=== PATIENT | male | born 1945 | race Caucasian/White ===

== ENCOUNTER 2020-05-28 14:01 | Emergency (ER) | payer MEDICARE ==
[~2020-05-28] VITALS: Ht 180.3 cm; Wt 100.0 kg
[2020-05-28] MEDS ORDERED: normal saline 1000ml 1,000 ML IV ONE (15:50)
[2020-05-28] MEDS ORDERED: dexamethasone sod phosphate 10mg/ml inj IV STA (16:37)
[2020-05-28] MEDS ORDERED: BAMLANIVIMAB INJECTION 700 MG in normal saline 250ml IV soln 180 ML IV ONE (16:40)
[2020-05-28] MEDS ORDERED: BAMLANIVIMAB INJECTION 700 MG in normal saline 250ml IV soln 250 ML IV ONE (16:44)
[2020-05-28 16:56] LABS: ALANINE AMINOTRANSFERASE 25 U/L (12-78); ALBUMIN/GLOBULIN RATIO 0.6 (1.1-1.5); ALKALINE PHOSPHATASE 111 IU/L (46-116); ANION GAP 14 (8-16); ASPARTATE AMINO TRANSFERASE 31 U/L (10-37); BLOOD UREA NITROGEN 22 MG/DL (7-18); BUN/CREATININE RATIO 13.8 (5.4-32.0); CHLORIDE 93 MMOL/L (99-107); GLUCOSE 121 MG/DL (70-104); POTASSIUM 3.4 MMOL/L (3.5-5.1); SODIUM 132 MMOL/L (135-145); TOTAL CARBON DIOXIDE 25.2 MMOL/L (24-32); TOTAL PROTEIN 8.4 G/DL (6.4-8.2); eGFR 43 ML/MIN
[2020-05-28 17:07] LABS: C-REACTIVE PROTEIN 19.31 MG/DL (0.0-0.5); FERRITIN 824 NG/ML (26-388); LACTATE DEHYDROGENASE 222 U/L (85-227)
[2020-05-28 17:36] VITALS: BP 135/85
== END 2020-05-28 19:38 | disposition home or self-care (01) ==
LOC: ER 14:02
DX: U07.1 COVID-19 (principal); R63.0 Anorexia; R06.2 Wheezing; R05 Cough; R19.7 Diarrhea, unspecified; R11.0 Nausea
CPT/HCPCS: 36415; 71045; 80053; 82728; 83615; 84145; 85384; 86140; 96361; 96374; 99284; J1100; J7030; J7050; M0239; Q0239; 96365; 96375

== ENCOUNTER 2021-08-26 19:53 | Inpatient (IN) | payer MEDICARE ==
[~2021-08-26] VITALS: Ht 180.3 cm; Wt 114.2 kg
[~2021-08-26 19:53] MED LIST: etomidate 2mg/ml inj. ONE
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
[2021-08-26 20:17] LABS: BASOPHILS % (AUTO) 0.5 % (0-1); EOSINOPHILS # (AUTO) 0.3 X10'3 (0-0.9); EOSINOPHILS % (AUTO) 3.5 % (0-6); HEMATOCRIT 45.8 % (42.0-52.0); HEMOGLOBIN 15.6 g/dl (14.0-17.9); LYMPHOCYTES # (AUTO) 2.8 X10'3 (1.1-4.8); LYMPHOCYTES % (AUTO) 38.9 % (21-51); MEAN CORPUSCULAR HEMOGLOBIN 30.9 PG (27.0-31.0); MEAN CORPUSCULAR HGB CONC 33.9 g/dL (33.0-36.5); MEAN PLATELET VOLUME 6.9 FL (7.4-10.4); MONOCYTES # (AUTO) 0.6 X10'3 (0-0.9); MONOCYTES % (AUTO) 7.9 % (2-12); NEUTROPHILS # (AUTO) 3.5 X10'3 (1.8-7.7); NEUTROPHILS % (AUTO) 49.2 % (42-75); PLATELET COUNT 163 X10'3 (140-440); RED BLOOD COUNT 5.04 X10'6 (4.70-6.10); RED CELL DISTRIBUTION WIDTH 14.2 % (11.5-14.5); WHITE BLOOD COUNT 7.2 X10'3 (4.5-11.0)
[2021-08-26 20:27] LABS: APTT 26 SECONDS (22-32)
[2021-08-26 20:29] LABS: ALANINE AMINOTRANSFERASE 60 U/L (12-78); ALBUMIN 3.9 G/DL (3.4-5.0); ALKALINE PHOSPHATASE 85 IU/L (46-116); ANION GAP 15 (8-16); ASPARTATE AMINO TRANSFERASE 51 U/L (10-37); BILIRUBIN,TOTAL 0.6 MG/DL (0.1-1.0); BLOOD UREA NITROGEN 23 MG/DL (7-18); BUN/CREATININE RATIO 15.3 (5.4-32.0); CALCIUM 8.2 MG/DL (8.5-10.1); CHLORIDE 100 MMOL/L (99-107); GLUCOSE 166 MG/DL (70-104); POTASSIUM 3.6 MMOL/L (3.5-5.1); SODIUM 137 MMOL/L (135-145); TOTAL CARBON DIOXIDE 22.4 MMOL/L (24-32); TOTAL PROTEIN 7.7 G/DL (6.4-8.2); eGFR 46 ML/MIN
[2021-08-26 20:32] LABS: ETHANOL 0.089 GM/DL (0.0-0.010)
--- NOTE | 2021-08-26 20:45 | NUR ---
Pt back from CT
[2021-08-26 20:46] VITALS: BP 80/54
[2021-08-26] MEDS ORDERED: propofol 1000mg/100ml bottle 100 ML IV SCH (20:50)
--- NOTE | 2021-08-26 20:58 | NUR ---
Pt awakening after CT. Rn put in order for propofol and began drip per Tom RAMIREZ orders.
[2021-08-26] MEDS ORDERED: NOREPINEPHRINE BITARTRATE/D5W 250 ML IV PRN (21:00)
[2021-08-26 21:02] LABS: ABG OXYGEN SATURATION 95.6 % (94-97); ABG PCO2 (T) 52.9 mmHg (35.0-48.0); ABG PO2 (T) 97.4 mmHg (75.0-100.0); ALLEN'S TEST POSITIVE; FCOHb 0.7 % (0.0-3.9); FMetHb 0.2 % (0.0-1.5); FO2Hb 94.7 % (94-97); PEEP 5 cm H2O; RESPIRATORY RATE 16 b/min; TIDAL VOLUME 450 mL; TOTAL HEMOGLOBIN 15.2 G/dl (14.0-18.0)
[2021-08-26 21:10] LABS: TRIGLYCERIDES 206 MG/DL (20-135)
[2021-08-26] MEDS ORDERED: fentaNYL 50mcg/ml PF inj. 2,500 MCG in normal saline 250ml IV soln 200 ML IV SCH (21:10)
[2021-08-26] MEDS ORDERED: normal saline 1000ML IV soln IV ONE (21:10)
[2021-08-26] MEDS: NOREPINEPHRINE BITARTRATE/D5W 250 ML IV PRN ×2 (21:15→21:53)
[2021-08-26] MEDS ORDERED: cefTRIAXone 1g/NS 100ml IVPB 100 ML IV ONE (21:35)
[2021-08-26] MEDS ORDERED: levoFLOXACIN-Levaquin 750MG/D5 150 ML IV ONE (21:35)
[2021-08-26] MEDS: midazolam 100mg in NS 100ml 100 ML IV PRN (21:46)
--- NOTE | 2021-08-26 21:54 | NUR ---
Patient's blood pressure has been low as documented. Consulted provider and given orders to switch patient to Fentanyl and Versed drip instead of Propofol.
[2021-08-26] MEDS: FENTANYL-0.9 % NACL/PF 250 ML IV SCH (22:07)
--- NOTE | 2021-08-26 22:31 | NUR ---
Patient's Fentanyl drip increased for patient comfort.
[2021-08-26] MEDS ORDERED: acetaminophen 325mg tablet PO PRN (22:40)
[2021-08-26] MEDS ORDERED: potassium Cl 20 mEq SR tablet PO PRN (22:40)
[2021-08-26] MEDS ORDERED: LIDOcaine 2% 10ml TOPICAL JELLY (Urojet) TP ONE (22:40)
[2021-08-26 22:50] VITALS: BP 98/72
--- NOTE | 2021-08-26 23:00 | NUR ---
Patient has been requiring increase in Versed titration for appropriate sedation. Patient sporadically waking up briefly at times. Versed increased.
--- NOTE | 2021-08-26 23:07 | NUR ---
Temp Ghosh placed.
--- NOTE | 2021-08-26 23:09 | NUR ---
Patient's left contact info = [phone]
[2021-08-26] MEDS: piperacillin/tazo 3.375gm/50ml 50 ML IV SCH (23:59)
[2021-08-27] VITALS (31 sets, daily range): BP systolic 85–135; BP diastolic 65–85
[2021-08-27 00:46] LABS: CLARITY,URINE CLEAR (Clear); COLOR,URINE YELLOW (Yellow); GLUCOSE, URINE NEGATIVE (Neg); KETONES,URINE NEGATIVE (Neg); LEUKOCYTE ESTERASE ,URINE NEGATIVE (Neg); NITRITES, URINE NEGATIVE (Neg); OCCULT BLOOD,URINE NEGATIVE (Neg); PROTEIN,URINE 30 mg/dl (Neg); UROBILINOGEN,URINE 0.2 E.U/dL (0.2-1.0)
[2021-08-27 00:52] LABS: UA COLLECTION TYPE NON-SPECIFIED
[2021-08-27 00:54] LABS: SQUAMOUS EPITHELIAL CELL,UR FEW /LPF (FEW)
[2021-08-27 00:55] LABS: BACTERIA,URINE FEW /HPF (Neg); URINE AMPHETAMINE SCREEN NEGATIVE (Neg); URINE BARBITUATE SCREEN NEGATIVE (Neg); URINE BENZODIAZEPINES SCREEN POSITIVE (Neg); URINE CANNABINOID SCREEN NEGATIVE (Neg); URINE COCAINE SCREEN NEGATIVE (Neg); URINE METHADONE SCREEN NEGATIVE (Neg); URINE OPIATE SCREEN NEGATIVE (Neg); URINE PHENCYCLIDINE SCREEN NEGATIVE (Neg)
[2021-08-27 00:56] LABS: FINE GRANULAR CAST 0-3 /LPF (NEGATIVE)
--- NOTE | 2021-08-27 03:02 | NUR ---
RN unable to complete admission questions due to patient arriving intubated and sedated.
[2021-08-27 03:31] LABS: ABG BASE EXCESS -1.6 mmol/L (-2.0-2.0); ABG HCO3 22.6 mmol/L (22.0-26.0); ABG OXYGEN SATURATION 96.1 % (94-97); ABG PCO2 (T) 32.4 mmHg (35.0-48.0); ABG PO2 (T) 72.6 mmHg (75.0-100.0); ALLEN'S TEST Modified; FCOHb 0.3 % (0.0-3.9); FMetHb 0.2 % (0.0-1.5); FO2Hb 95.6 % (94-97); PATIENT TEMPERATURE 34.1; PEEP 5 cm H2O; RESPIRATORY RATE 18 b/min; TIDAL VOLUME 450 mL; TOTAL HEMOGLOBIN 14.6 G/dl (14.0-18.0)
--- NOTE | 2021-08-27 04:49 | NUR ---
RN discussed with Dr. Osorio at 0449 via telemedicine facechat that patient has been hypothermic since arrival at 0100 as low as 34.1 C, Dr. Osorio states temperature < 36 C but > 32.2 C is acceptable for the next 12 hours.
[2021-08-27] MEDS: midazolam 100mg in NS 100ml 100 ML IV PRN (05:36)
[2021-08-27 06:31] LABS: BASOPHILS % (AUTO) 0.3 % (0-1); EOSINOPHILS # (AUTO) 0.2 X10'3 (0-0.9); EOSINOPHILS % (AUTO) 3.2 % (0-6); HEMATOCRIT 43.6 % (42.0-52.0); HEMOGLOBIN 14.6 g/dl (14.0-17.9); LYMPHOCYTES # (AUTO) 1.3 X10'3 (1.1-4.8); LYMPHOCYTES % (AUTO) 21.1 % (21-51); MEAN CORPUSCULAR HEMOGLOBIN 30.7 PG (27.0-31.0); MEAN CORPUSCULAR HGB CONC 33.6 g/dL (33.0-36.5); MEAN CORPUSCULAR VOLUME 91.3 FL (78-98); MEAN PLATELET VOLUME 7.1 FL (7.4-10.4); MONOCYTES # (AUTO) 0.6 X10'3 (0-0.9); NEUTROPHILS % (AUTO) 65.4 % (42-75); PLATELET COUNT 127 X10'3 (140-440); RED BLOOD COUNT 4.78 X10'6 (4.70-6.10); RED CELL DISTRIBUTION WIDTH 13.9 % (11.5-14.5); WHITE BLOOD COUNT 6.1 X10'3 (4.5-11.0)
[2021-08-27 06:38] LABS: APTT 25 SECONDS (22-32)
[2021-08-27 07:08] LABS: ALBUMIN 3.3 G/DL (3.4-5.0); ANION GAP 13 (8-16); BLOOD UREA NITROGEN 25 MG/DL (7-18); BUN/CREATININE RATIO 18.9 (5.4-32.0); CALCIUM 8.5 MG/DL (8.5-10.1); CHLORIDE 103 MMOL/L (99-107); CREATININE 1.32 MG/DL (0.60-1.10); GLUCOSE 108 MG/DL (70-104); MAGNESIUM 1.7 MG/DL (1.5-2.4); PHOSPHORUS 3.7 MG/DL (2.3-4.5); POTASSIUM 3.3 MMOL/L (3.5-5.1); SODIUM 140 MMOL/L (135-145); TOTAL CARBON DIOXIDE 23.6 MMOL/L (24-32); eGFR 53 ML/MIN
[2021-08-27] MEDS: FENTANYL-0.9 % NACL/PF 250 ML IV SCH (07:25)
[2021-08-27] MEDS ORDERED: FENTANYL-0.9 % NACL/PF 100 ML IV SCH ×2 (07:38→07:41)
[2021-08-27] MEDS: piperacillin/tazo 3.375gm/50ml 50 ML IV SCH ×3 (07:43→23:46)
[2021-08-27] MEDS: heparin, porcine 5000 units/ml vial SQ SCH ×4 (07:44→23:48)
[2021-08-27] MEDS: K and/or MAG REPLACEMENT MC SCH (08:00)
--- NOTE | 2021-08-27 08:51 | NUR ---
Patient in room CICU 2007. I have received report from Forest PAINTING and had the opportunity to ask questions and assume patient care.
[2021-08-27] MEDS: potassium Cl 20 mEq SR tablet PO PRN ×2 (08:59→11:47)
[2021-08-27] MEDS: ipratropium/albuterol 3ml nebule NEB SCH ×4 (11:12→23:11)
[2021-08-27] MEDS ORDERED: haloperidol lactate 5mg/ml inj IM PRN (11:15)
[2021-08-27] MEDS ORDERED: haloperidol 5mg tablet PO PRN (11:15)
[2021-08-27] MEDS ORDERED: LORazepam 1 MG tablet PO PRN (11:15)
[2021-08-27] MEDS ORDERED: LORazepam 2 mg/ml vial IV PRN (11:15)
[2021-08-27] MEDS: pantoprazole 40MG/NS 100ML BAG 100 ML IV SCH (11:26)
--- NOTE | 2021-08-27 11:28 | NUR ---
Noted pt with a low Guevara of 12. Per EMR pt with BLE 3+ edema and skin is intact. Pt just extubated, okay for diet to be advanced per MD at critical care rounds. Will continue to follow. Addendum: 08/27/21 at [address] Amended: Links added.
[2021-08-27] MEDS: thiamine 100mg/ml 2ml inj. IV SCH ×2 (11:46→20:36)
[2021-08-27] MEDS: chlordiazePOXIDE 25mg capsule PO SCH ×3 (11:47→20:36)
[2021-08-27] MEDS: multivitamins, therapeutics tablet PO SCH (11:47)
[2021-08-27] MEDS ORDERED: ALPR0.5T8 PO (12:36)
[2021-08-27] MEDS ORDERED: ALLO300T2 PO (12:36)
[2021-08-27] MEDS ORDERED: ATOR10TA70 PO (12:36)
[2021-08-27] MEDS ORDERED: OMEP40CA21 PO (12:36)
[2021-08-27] MEDS ORDERED: CARV25TA2 PO (12:36)
[2021-08-27] MEDS ORDERED: AMLO5TAB PO (12:36)
[2021-08-27] MEDS ORDERED: ZOLP10TA PO (12:36)
[2021-08-27] MEDS ORDERED: TRIA1TAB5 PO (12:36)
--- NOTE | 2021-08-27 13:44 | NUR ---
PRESSURE ULCER EDUCATION: DEFINITION: A pressure ulcer is an area of skin that breaks down when you stay in one position too long. The constant pressure against the skin reduces the blood flow to that area and the affected tissue dies. CAUSES: "Being bedridden or in a wheelchair "Fragile skin "Having a chronic condition, such as diabetes or vascular disease "Inability to move certain parts of your body without assistance "Older age "Incontinence of urine or stool SYMPTOMS: "A reddened area that DOES NOT turn white when pressed on - this can be the beginning of a pressure ulcer "A blister, deep sore or a crater - these can be advanced pressure ulcers FIRST AID: "Relieve the pressure on this area "Keep the area clean and dry "Call your primary doctor if you see any of the above symptoms "DO NOT massage the area "DO NOT use a donut shaped or ring shaped pillow- these actually interfere with the blood flow and cause complications PREVENTION: "Check for pressure ulcers everyday "Change position at least every two hours to relieve pressure "Use items that help relieve pressure- pillows, sheepskin, foam padding, and powders. "Keep skin clean and dry "Eat healthy well balanced meals "Exercise daily IF YOU SEE ANY OF THESE SYMPTOMS WHILE IN THE HOSPITAL - TELL YOUR NURSE IMMEDIATELY. IF YOU SEE ANY OF THESE SYMPTOMS WHILE AT HOME OR HAVE ANY QUESTIONS OR CONCERNS ABOUT PRESSURE ULCERS - CALL YOUR PRIMARY DOCTOR IMMEDIATELY. Addendum: 08/27/21 at 1344 by Rufina Oglesby LVN Amended: Links added.
[2021-08-27] MEDS: folic acid 1mg/0.2ml inj IV SCH (14:14)
[2021-08-27] MEDS: acetaminophen 325mg tablet PO PRN (15:42)
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
--- NOTE | 2021-08-27 18:17 | NUR ---
Problems reprioritized. Patient report given, questions answered & plan of care reviewed with Dio PAINTING.
--- NOTE | 2021-08-27 19:00 | NUR ---
Patient in room CICU 2007. I have received report from Linad PAINTING and had the opportunity to ask questions and assume patient care.
[2021-08-28] VITALS (14 sets, daily range): BP systolic 109–133; BP diastolic 61–79
[2021-08-28] MEDS: ipratropium/albuterol 3ml nebule NEB SCH ×6 (03:55→23:22)
[2021-08-28] MEDS: chlordiazePOXIDE 25mg capsule PO SCH ×4 (04:29→20:22)
[2021-08-28 06:13] LABS: BASOPHILS % (AUTO) 0.2 % (0-1); EOSINOPHILS # (AUTO) 0.2 X10'3 (0-0.9); EOSINOPHILS % (AUTO) 2.5 % (0-6); HEMATOCRIT 41.8 % (42.0-52.0); HEMOGLOBIN 14.2 g/dl (14.0-17.9); LYMPHOCYTES # (AUTO) 0.7 X10'3 (1.1-4.8); LYMPHOCYTES % (AUTO) 10.8 % (21-51); MEAN CORPUSCULAR HEMOGLOBIN 30.6 PG (27.0-31.0); MEAN CORPUSCULAR HGB CONC 33.9 g/dL (33.0-36.5); MEAN CORPUSCULAR VOLUME 90.2 FL (78-98); MEAN PLATELET VOLUME 7.2 FL (7.4-10.4); MONOCYTES # (AUTO) 0.6 X10'3 (0-0.9); MONOCYTES % (AUTO) 8.2 % (2-12); NEUTROPHILS # (AUTO) 5.3 X10'3 (1.8-7.7); NEUTROPHILS % (AUTO) 78.3 % (42-75); PLATELET COUNT 109 X10'3 (140-440); RED BLOOD COUNT 4.64 X10'6 (4.70-6.10); RED CELL DISTRIBUTION WIDTH 14.1 % (11.5-14.5); WHITE BLOOD COUNT 6.8 X10'3 (4.5-11.0)
[2021-08-28 06:19] LABS: APTT 31 SECONDS (22-32)
--- NOTE | 2021-08-28 06:30 | NUR ---
Patient in room CICU 2007. I have received report from Dio PAINTING and had the opportunity to ask questions and assume patient care.
[2021-08-28 06:48] LABS: ALANINE AMINOTRANSFERASE 39 U/L (12-78); ALBUMIN/GLOBULIN RATIO 0.9 (1.1-1.5); ALKALINE PHOSPHATASE 71 IU/L (46-116); AMYLASE 29 U/L (25-115); ANION GAP 9 (8-16); ASPARTATE AMINO TRANSFERASE 22 U/L (10-37); BILIRUBIN,TOTAL 1.2 MG/DL (0.1-1.0); BLOOD UREA NITROGEN 15 MG/DL (7-18); BUN/CREATININE RATIO 10.7 (5.4-32.0); CALCIUM 8.2 MG/DL (8.5-10.1); CHLORIDE 102 MMOL/L (99-107); GLUCOSE 116 MG/DL (70-104); LIPASE 61 U/L (73-393); MAGNESIUM 1.4 MG/DL (1.5-2.4); PHOSPHORUS 3.1 MG/DL (2.3-4.5); POTASSIUM 3.5 MMOL/L (3.5-5.1); SODIUM 138 MMOL/L (135-145); TOTAL CARBON DIOXIDE 27.5 MMOL/L (24-32); TOTAL PROTEIN 6.5 G/DL (6.4-8.2); eGFR 50 ML/MIN
[2021-08-28] MEDS ORDERED: magnesium Cl slow-release 64mg tablet PO PRN (07:15)
[2021-08-28] MEDS: pantoprazole 40MG/NS 100ML BAG 100 ML IV SCH (08:10)
[2021-08-28] MEDS: K and/or MAG REPLACEMENT MC SCH (08:10)
[2021-08-28] MEDS: thiamine 100mg/ml 2ml inj. IV SCH ×2 (08:11→14:03)
[2021-08-28] MEDS: heparin, porcine 5000 units/ml vial SQ SCH ×2 (08:11→15:14)
[2021-08-28] MEDS: multivitamins, therapeutics tablet PO SCH (08:11)
[2021-08-28] MEDS: folic acid 1mg/0.2ml inj IV SCH (08:11)
[2021-08-28] MEDS: piperacillin/tazo 3.375gm/50ml 50 ML IV SCH (08:52)
--- NOTE | 2021-08-28 09:21 | NUR ---
Dr. Jacob rounded on the patient. Stated patient is medically well enough to be transferred to the floor. Dagmar LONGORIA was present, so Dr. Jacob has cardiology consult because patient would randomly geri down the 30s yesterday. Dr. Jacob verbally ordered d/c xiong, and accuchecks because pt blood glucose was no longer elevated. Also, Dr Jacob verbally order PT/OT to eval and treat.
[2021-08-28] MEDS ORDERED: ALPRAZolam 0.5mg tablet PO PRN (11:00)
[2021-08-28] MEDS ORDERED: DOXYCYCLINE 100 MG in NORMAL SALINE 100ml IV.SOLN IV SCH (11:00)
[2021-08-28] MEDS ORDERED: CefTRIAXone 2gm/NS 100ml IVPB 100 ML IV SCH (12:00)
--- NOTE | 2021-08-28 12:10 | NUR ---
Problems reprioritized. Patient report given, questions answered & plan of care reviewed with Rufina PAINTING.
[2021-08-28] MEDS ORDERED: metoprolol tartrate 1mg/ml inj IV PRN (12:30)
[2021-08-28] MEDS ORDERED: regadenoson 0.4mg/5ml syringe IV PRN (12:30)
[2021-08-28] MEDS ORDERED: nitroGLYCERIN 0.4mg SUBLingual tab SL PRN (12:30)
[2021-08-28] MEDS ORDERED: aminophylline 250mg/10ml inj. IV PRN (12:30)
--- NOTE | 2021-08-28 14:29 | NUR ---
1430 Pt declined stress test today. pt said he did not feel well enough to do it. Pt said Maybe tomorrow he will get it done. Dr. Madsen notified at 1430.
[2021-08-28] MEDS ORDERED: aminophylline 500mg/20ml vial IV PRN (15:30)
[2021-08-28] MEDS: carVEDilol 12.5mg tablet PO SCH (20:21)
[2021-08-28] MEDS: zolpidem 5mg tablet PO SCH (20:22)
--- NOTE | 2021-08-28 23:48 | NUR ---
Ghosh catheter removed as per order. Pt voided post catheter removal 100ml. Addendum: 08/28/21 at 2350 by Erika Ji RN Amended: Links added.
[2021-08-29] MEDS: chlordiazePOXIDE 25mg capsule PO SCH ×2 (01:16→09:50)
[2021-08-29] MEDS: acetaminophen 325mg tablet PO PRN (01:24)
[2021-08-29 02:00] VITALS: BP 148/90
[2021-08-29] MEDS: ipratropium/albuterol 3ml nebule NEB SCH ×2 (02:52→07:22)
[2021-08-29 06:00] VITALS: BP 135/84
[2021-08-29] MEDS ORDERED: pantoprazole 40mg Tablet.DR PO SCH ×2 (07:30→08:00)
[2021-08-29] MEDS ORDERED: folic acid 1mg tablet PO SCH (08:00)
[2021-08-29] MEDS: K and/or MAG REPLACEMENT MC SCH (08:00)
[2021-08-29] MEDS ORDERED: thiamine 100mg tablet PO SCH (08:00)
[2021-08-29] MEDS ORDERED: allopurinol 300 MG tablet PO SCH (08:00)
[2021-08-29] MEDS ORDERED: amLODIPine 5mg tablet PO SCH (08:00)
[2021-08-29 08:23] LABS: BASOPHILS % (AUTO) 0.3 % (0-1); EOSINOPHILS # (AUTO) 0.2 X10'3 (0-0.9); EOSINOPHILS % (AUTO) 2.5 % (0-6); HEMATOCRIT 45.5 % (42.0-52.0); HEMOGLOBIN 15.5 g/dl (14.0-17.9); LYMPHOCYTES # (AUTO) 0.8 X10'3 (1.1-4.8); LYMPHOCYTES % (AUTO) 12.9 % (21-51); MEAN CORPUSCULAR HGB CONC 34.2 g/dL (33.0-36.5); MEAN CORPUSCULAR VOLUME 90.8 FL (78-98); MEAN PLATELET VOLUME 7.6 FL (7.4-10.4); MONOCYTES # (AUTO) 0.6 X10'3 (0-0.9); MONOCYTES % (AUTO) 9.4 % (2-12); NEUTROPHILS # (AUTO) 4.8 X10'3 (1.8-7.7); NEUTROPHILS % (AUTO) 74.9 % (42-75); PLATELET COUNT 127 X10'3 (140-440); RED BLOOD COUNT 5.01 X10'6 (4.70-6.10); WHITE BLOOD COUNT 6.4 X10'3 (4.5-11.0)
--- NOTE | 2021-08-29 08:48 | NUR ---
Lexiscan Cancelled Per Dr. Elva Shearer, cancel Lexiscan to allow time for pt to detox from ETOH and heal from CPR. Schedule pt for an outpt Lexiscan.
[2021-08-29 09:08] LABS: ALANINE AMINOTRANSFERASE 27 U/L (12-78); ALBUMIN/GLOBULIN RATIO 0.7 (1.1-1.5); ALKALINE PHOSPHATASE 67 IU/L (46-116); AMYLASE 26 U/L (25-115); ANION GAP 12 (8-16); ASPARTATE AMINO TRANSFERASE 15 U/L (10-37); BILIRUBIN,TOTAL 1.1 MG/DL (0.1-1.0); BLOOD UREA NITROGEN 10 MG/DL (7-18); BUN/CREATININE RATIO 7.9 (5.4-32.0); CALCIUM 9.2 MG/DL (8.5-10.1); CHLORIDE 102 MMOL/L (99-107); CREATININE 1.26 MG/DL (0.60-1.10); GLUCOSE 124 MG/DL (70-104); LIPASE 69 U/L (73-393); MAGNESIUM 1.7 MG/DL (1.5-2.4); PHOSPHORUS 2.1 MG/DL (2.3-4.5); POTASSIUM 3.2 MMOL/L (3.5-5.1); SODIUM 139 MMOL/L (135-145); TOTAL CARBON DIOXIDE 25.4 MMOL/L (24-32); TOTAL PROTEIN 7.2 G/DL (6.4-8.2); eGFR 56 ML/MIN
--- NOTE | 2021-08-29 09:24 | NUR ---
Mary Scan is cancelled: Morning medications are given. patient and family are informed of the plan to have Dr. Shearer do the follow up exam and testing.
[2021-08-29 09:25] LABS: APTT 29 SECONDS (22-32)
[2021-08-29] MEDS: atorvastatin 10mg tablet PO SCH ×2 (09:50→09:54)
[2021-08-29 09:51] VITALS: BP_SYST 135
[2021-08-29] MEDS: carVEDilol 12.5mg tablet PO SCH (09:54)
[2021-08-29] MEDS: zolpidem 5mg tablet PO SCH (09:57)
[2021-08-29] MEDS: heparin, porcine 5000 units/ml vial SQ SCH ×2 (10:01)
[2021-08-29] MEDS: multivitamins, therapeutics tablet PO SCH (10:10)
--- NOTE | 2021-08-29 11:11 | NUR ---
Pt. has disconnected self from IV and Telemetry. He was asked to wait to speak with the doctor about discharge prior to calling for a ride home. He is now absent and there are no personal belongings left in the room.
== END 2021-08-29 11:00 | disposition left against medical advice (07) | DRG 208 ==
LOC: ER 19:54 → ED HOLD 22:44 → CICU 2S 08-27 00:33 → PCU 3S 08-28 11:31
PROVIDERS: ADMIT Internal Medicine; ATTEND Internal Medicine
PROC: 5A1935Z Respiratory Ventilation, Less than 24 Consecutive Hours (ICD-10-PCS; principal; 2021-08-26)
PROC: 0BH17EZ Insertion of Endotracheal Airway into Trachea, Via Natural or Artificial Opening (ICD-10-PCS; 2021-08-26)
DX: J96.00 Acute respiratory failure, unspecified whether with hypoxia or hypercapnia (principal); J69.0 Pneumonitis due to inhalation of food and vomit; I46.9 Cardiac arrest, cause unspecified; G93.41 Metabolic encephalopathy; E87.2 Acidosis; I31.3 Pericardial effusion (noninflammatory); R00.1 Bradycardia, unspecified; E66.01 Morbid (severe) obesity due to excess calories; E78.5 Hyperlipidemia, unspecified; I95.9 Hypotension, unspecified; F10.10 Alcohol abuse, uncomplicated; I10 Essential (primary) hypertension; Z53.29 Procedure and treatment not carried out because of patient's decision for other reasons; Z96.651 Presence of right artificial knee joint; M10.9 Gout, unspecified; Z87.891 Personal history of nicotine dependence; Z68.35 Body mass index [BMI] 35.0-35.9, adult; Z79.899 Other long term (current) drug therapy; Z53.21 Procedure and treatment not carried out due to patient leaving prior to being seen by health care provider
CPT/HCPCS: 31500; 36415; 36600; 70450; 71045; 80048; 80053; 80305; 80320; 81001; 82150; 82803; 82948; 83605; 83690; 83735; 84100; 84145; 84478; 84484; 85018; 85025; 85610; 85730; 87040; 87070; 87088; 93005; 93306; 94002; 94003; 94640; 94667; 94668; 94760; 96374; 99291; C9113; G0378; J0696; J1644; J1956; J2543; J2704; J3010; J3411; J3490; J7030

== ENCOUNTER 2021-09-03 10:06 | Day surgery (SDC) | payer MEDICARE ==
[2021-09-03] VITALS (8 sets, daily range): BP systolic 119–142; BP diastolic 78–91
[~2021-09-03] VITALS: Ht 177.8 cm; Wt 107.6 kg
[~2021-09-03 10:06] MED LIST changes: +ALLO300T2 PO; +ALPR0.5T8 PO; +AMLO5TAB PO; +ATOR10TA70 PO; +CARV25TA2 PO; +OMEP40CA21 PO; +TRIA1TAB5 PO; +ZOLP10TA PO; -etomidate 2mg/ml inj. ONE
[2021-09-03] MEDS ORDERED: LORazepam 0.5 MG tablet PO PRN (10:25)
[2021-09-03] MEDS ORDERED: diphenhydrAMINE 25mg capsule PO PRN (10:25)
[2021-09-03] MEDS ORDERED: normal saline 1,000 ML IV SCH (10:25)
[2021-09-03 10:58] LABS: BASOPHILS % (AUTO) 0.5 % (0-1); EOSINOPHILS # (AUTO) 0.2 X10'3 (0-0.9); EOSINOPHILS % (AUTO) 3.4 % (0-6); HEMATOCRIT 46.2 % (42.0-52.0); HEMOGLOBIN 15.7 g/dl (14.0-17.9); LYMPHOCYTES # (AUTO) 1.3 X10'3 (1.1-4.8); LYMPHOCYTES % (AUTO) 20.3 % (21-51); MEAN CORPUSCULAR HEMOGLOBIN 30.7 PG (27.0-31.0); MEAN CORPUSCULAR VOLUME 90.2 FL (78-98); MEAN PLATELET VOLUME 6.7 FL (7.4-10.4); MONOCYTES # (AUTO) 0.8 X10'3 (0-0.9); MONOCYTES % (AUTO) 12.1 % (2-12); NEUTROPHILS # (AUTO) 4.2 X10'3 (1.8-7.7); NEUTROPHILS % (AUTO) 63.7 % (42-75); PLATELET COUNT 197 X10'3 (140-440); RED BLOOD COUNT 5.12 X10'6 (4.70-6.10); RED CELL DISTRIBUTION WIDTH 14.1 % (11.5-14.5); WHITE BLOOD COUNT 6.6 X10'3 (4.5-11.0)
[2021-09-03 11:09] LABS: ALBUMIN 3.7 G/DL (3.4-5.0); ANION GAP 8 (8-16); BLOOD UREA NITROGEN 23 MG/DL (7-18); BUN/CREATININE RATIO 15.2 (5.4-32.0); CALCIUM 8.7 MG/DL (8.5-10.1); CHLORIDE 105 MMOL/L (99-107); CREATININE 1.51 MG/DL (0.60-1.10); GLUCOSE 101 MG/DL (70-104); POTASSIUM 3.5 MMOL/L (3.5-5.1); SODIUM 142 MMOL/L (135-145); TOTAL CARBON DIOXIDE 29.1 MMOL/L (24-32); eGFR 45 ML/MIN
[2021-09-03] MEDS ORDERED: nitroGLYCERIN-Tridil 50MG/D5W 250 ML IV ONE (13:27)
[2021-09-03] MEDS ORDERED: heparin 1,000unit/ml 10ml vial 10 ML ONE (13:28)
[2021-09-03] MEDS ORDERED: LIDOCAINE 1% w/preservative (10 MG/ML) inj. 10mL VIAL ONE (13:28)
[2021-09-03] MEDS ORDERED: fentaNYL/PF 50MCG/1 ML 2ML syringe ONE (13:28)
[2021-09-03] MEDS ORDERED: verapamil 2.5 mg/ml inj IV ONE (13:28)
[2021-09-03] MEDS ORDERED: iohexol 350MG/ML 100ml bottle IV ONE (13:28)
[2021-09-03] MEDS ORDERED: midazolam 1 mg/ML 2ml injection ONE (13:28)
== END 2021-09-03 17:40 | disposition home or self-care (01) ==
LOC: SSTAY O 10:06
PROVIDERS: ATTEND Internal Medicine Interventional Cardiology
DX: R07.89 Other chest pain (principal); I10 Essential (primary) hypertension; E78.5 Hyperlipidemia, unspecified; Z79.899 Other long term (current) drug therapy; Z96.651 Presence of right artificial knee joint; Z98.890 Other specified postprocedural states; Z72.89 Other problems related to lifestyle; Z82.49 Family history of ischemic heart disease and other diseases of the circulatory system
CPT/HCPCS: 36415; 80048; 85025; 85610; 93458; 99152; 99153; C1769; C1894; J1644; J2250; J3010; J3490; J7030; Q0163; Q9967; 93005; A4620; A5120; A6258

== ENCOUNTER 2021-12-04 11:42 | Emergency (ER) | payer MEDICARE ==
[~2021-12-04] VITALS: Ht 177.8 cm; Wt 104.0 kg
[2021-12-04 12:20] VITALS: BP 130/85
[2021-12-04] MEDS ORDERED: LIDOcaine 1% W/epiNEPHrine 1:100,000 20ml vial IJ ONE (14:05)
[2021-12-04] MEDS ORDERED: TETanus/Pertussis (Acell)/Diphther VAC/PF (Tdap-Adult) 0.5ml syringe IMVAC ONE (14:05)
[2021-12-04] MEDS ORDERED: ALPRAZolam 0.25mg tablet PO ONE (15:40)
[2021-12-04] MEDS ORDERED: AMOX-580 PO (16:04)
[2021-12-04] MEDS ORDERED: HYDR-3972 PO (16:04)
[2021-12-09] MEDS ORDERED: HYDR-3965 PO (11:52)
[2021-12-09] MEDS ORDERED: SULF1TAB49 PO (11:52)
[2021-12-09] MEDS ORDERED: DOCU-170 PO (11:52)
== END 2021-12-04 16:30 | disposition home or self-care (01) ==
LOC: ER 11:42
DX: S61.411A Laceration without foreign body of right hand, initial encounter (principal); W54.0XXA Bitten by dog, initial encounter; Y93.89 Activity, other specified; Y92.89 Other specified places as the place of occurrence of the external cause; Y99.8 Other external cause status
CPT/HCPCS: 12002; 90471; 90715; 99284; L3908; A6258; A6449

== ENCOUNTER 2022-10-04 10:13 | Emergency (ER) | payer MEDICARE ==
[~2022-10-04] VITALS: Ht 177.8 cm; Wt 104.5 kg
[~2022-10-04 10:13] MED LIST changes: +DOCU-170 PO
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
[2022-10-04] MEDS ORDERED: CEPH-585 PO (13:10)
== END 2022-10-04 13:40 | disposition home or self-care (01) ==
LOC: ER 10:14
DX: L03.116 Cellulitis of left lower limb (principal)
CPT/HCPCS: 93971; 99284

== ENCOUNTER 2022-10-10 10:14 | Emergency (ER) | payer MEDICARE ==
[~2022-10-10] VITALS: Ht 180.3 cm; Wt 109.1 kg
[~2022-10-10 10:14] MED LIST changes: +CEPH-585 PO
[2022-10-10 11:51] LABS: BASOPHILS # (AUTO) 0.1 X10'3 (0-0.2); BASOPHILS % (AUTO) 0.6 % (0-1); EOSINOPHILS # (AUTO) 0.2 X10'3 (0-0.9); EOSINOPHILS % (AUTO) 2.7 % (0-6); HEMATOCRIT 42.8 % (42.0-52.0); HEMOGLOBIN 14.4 g/dl (14.0-17.9); LYMPHOCYTES # (AUTO) 1.5 X10'3 (1.1-4.8); LYMPHOCYTES % (AUTO) 17.3 % (21-51); MEAN CORPUSCULAR HEMOGLOBIN 29.8 PG (27.0-31.0); MEAN CORPUSCULAR HGB CONC 33.7 g/dL (33.0-36.5); MEAN CORPUSCULAR VOLUME 88.5 FL (78-98); MEAN PLATELET VOLUME 6.8 FL (7.4-10.4); MONOCYTES # (AUTO) 0.7 X10'3 (0-0.9); MONOCYTES % (AUTO) 8.6 % (2-12); NEUTROPHILS # (AUTO) 6.1 X10'3 (1.8-7.7); NEUTROPHILS % (AUTO) 70.8 % (42-75); PLATELET COUNT 307 X10'3 (140-440); RED BLOOD COUNT 4.84 X10'6 (4.70-6.10); RED CELL DISTRIBUTION WIDTH 14.6 % (11.5-14.5); WHITE BLOOD COUNT 8.6 X10'3 (4.5-11.0)
[2022-10-10 12:04] LABS: ALANINE AMINOTRANSFERASE 22 U/L (12-78); ALBUMIN 3.2 G/DL (3.4-5.0); ALBUMIN/GLOBULIN RATIO 0.7 (1.1-1.5); ALKALINE PHOSPHATASE 95 IU/L (46-116); ANION GAP 10 (8-16); ASPARTATE AMINO TRANSFERASE 15 U/L (10-37); BILIRUBIN,TOTAL 0.6 MG/DL (0.1-1.0); BLOOD UREA NITROGEN 21 MG/DL (7-18); BUN/CREATININE RATIO 14.5 (10.0-20.0); CALCIUM 9.2 MG/DL (8.5-10.1); CHLORIDE 98 MMOL/L (99-107); CREATININE 1.45 MG/DL (0.60-1.10); GLUCOSE 128 MG/DL (70-104); POTASSIUM 3.4 MMOL/L (3.5-5.1); SODIUM 136 MMOL/L (135-145); TOTAL CARBON DIOXIDE 28.2 MMOL/L (24-32); TOTAL PROTEIN 7.8 G/DL (6.4-8.2); eGFR 47 ML/MIN
--- NOTE | 2022-10-10 13:12 | NUR ---
RN CALLED LAB AND 2ND SET OF BLOOD CULTURES ARE NEEDED. RN WILL OBTAIN WHEN IV IS PLACED.
[2022-10-10] MEDS ORDERED: LIDOcaine 1% W/epiNEPHrine 1:100,000 20ml vial IJ ONE (13:15)
[2022-10-10] MEDS ORDERED: vancomycin/NS 1 GM ADD-VANTAGE 250 ML IV ONE (13:15)
[2022-10-10] MEDS ORDERED: ALPRAZolam 0.5mg tablet PO ONE ×2 (13:55)
[2022-10-10] MEDS ORDERED: SULF1TAB49 PO (14:17)
[2022-10-10 15:58] VITALS: BP 121/75
[2022-10-10] MEDS ORDERED: HYDROcodone/acetaminophen 5mg/325mg tablet PO ONE (16:15)
== END 2022-10-10 16:22 | disposition home or self-care (01) ==
LOC: ER 10:14
DX: L02.416 Cutaneous abscess of left lower limb (principal); Z79.899 Other long term (current) drug therapy
CPT/HCPCS: 10060; 36415; 80053; 83605; 84145; 85025; 87040; 87070; 87077; 87186; 96365; 96366; 99284; A6266; J3370; A6258; A6449

== ENCOUNTER 2022-11-17 20:42 | Emergency (ER) | payer MEDICARE ==
[~2022-11-17 20:42] MED LIST changes: -CEPH-585 PO
== END 2022-11-17 20:53 | disposition left against medical advice (07) ==
LOC: ER 20:42
DX: Z00.8 Encounter for other general examination (principal); Z53.21 Procedure and treatment not carried out due to patient leaving prior to being seen by health care provider